=== PATIENT | female | born 1930 | race Caucasian/White ===

== ENCOUNTER 2017-07-02 11:02 | Emergency (ER) | payer MEDICARE, OTHER ==
[2017-07-02] MEDS ORDERED: Aspirin 81 MG Tab.Chew PO ONE (11:17)
[2017-07-02] MEDS ORDERED: Sodium Chloride 0.9% 10 ML Syringe FLUSH PRN (11:17)
[2017-07-02] MEDS ORDERED: GI Cocktail Oral Solution 30 ML PO ONE (11:17)
[2017-07-02] MEDS ORDERED: Aspirin 81 MG Tab.EC PO ONE (12:04)
[2017-07-02 12:22] LABS: CHLORIDE,CL 101 mmol/L (98-107); SODIUM,NA 137 mmol/L (136-145)
--- NOTE | 2017-07-02 12:51 | EDM.PDOC ---
ED HPI GENERAL MEDICAL PROBLEM - General Chief Complaint: Cardiovascular Problem Stated Complaint: VOMITING Time Seen by Provider: 07/02/17 11:16 Source of Information: Reports: Patient History Limitations: Reports: No Limitations - History of Present Illness INITIAL COMMENTS - FREE TEXT/NARRATIVE: Patient reports having some chest pain this morning at 0900. This then resulted in nausea and vomiting. She did take a nitro at home as well as 2 baby aspirin. She developed the pain while sitting. It does not worsen with activity. She does have a history of PR. No smoking, alcohol, or drug use. She denies diaphoresis, abdominal pain, fever, headache. No arm, neck or jaw pain. She denies current pain. Onset: Today, Sudden Location: Reports: Chest, Abdomen Quality: Reports: Pressure, Sharp Severity: Mild Worsens with: Reports: None Associated Symptoms: Reports: Chest Pain, Nausea/Vomiting Mid-Sternal Chest Pain Score (Numeric/FACES): 2 - Related Data Allergies Allergy/AdvReac Type Severity Reaction Status Date / Time latex Allergy Cannot Verified 07/02/17 12:33 Remember levofloxacin [From Levaquin] Allergy Cannot Verified 07/02/17 12:33 Remember lisinopril Allergy Wheezing Verified 07/02/17 12:33 pravastatin Allergy Cannot Verified 07/02/17 12:33 Remember sulfamethoxazole Allergy Cannot Verified 07/02/17 12:33 [From Septra] Remember trimethoprim [From Septra] Allergy Cannot Verified 07/02/17 12:33 Remember acetaminophen AdvReac Nausea and Verified 07/02/17 12:33 [From Lorcet 10/650] Vomiting hydrocodone bitartrate AdvReac Nausea and Verified 07/02/17 12:33 [From Lorcet 10/650] Vomiting nitrofurantoin AdvReac Nausea and Verified 07/02/17 12:33 macrocrystalline Vomiting [From Macrobid] tramadol [From Ultram] AdvReac Nausea and Verified 07/02/17 12:33 Vomiting Home Meds: Home Meds Nitroglycerin [Nitrostat] 1 tab SL TID PRN 04/28/13 [History] Vitamin E 400 unit PO DAILY 04/28/13 [History] Nystatin/Triamcinolone Crm [Mycolog Crm] 1 gm TOP BID PRN 04/27/14 [History] diphenhydrAMINE [Benadryl] 25 mg PO DAILY PRN 04/27/14 [History] Aspirin [Halfprin] 81 mg PO DAILY 08/07/14 [History] Calcium Carbonate/Vitamin D3 [Calcium 500-Vit D3 200 Caplet] 1 tab PO DAILY [History] Omeprazole 20 mg PO BID #60 cap.cr 10/20/15 [Rx] Ferrous Sulfate 325 mg PO DAILY 12/31/15 [History] riTUXimab [Rituxan] 1,000 mg IV Q6M 12/31/15 [History] Magnesium Oxide 400 mg PO BID #60 tablet 01/03/16 [Rx] glipiZIDE [Glucotrol XL] 5 mg PO DAILY 03/13/16 [History] Allopurinol [Zyloprim] 100 mg PO DAILY 04/03/16 [History] OXcarbazepine [Trileptal] 300 mg PO BID 04/04/16 [History] Acetaminophen [Tylenol Extra Strength] 1,000 mg PO Q4H PRN 07/02/17 [History] Carvedilol [Coreg] 12.5 mg PO BID 07/02/17 [History] Cranberry 400 mg PO DAILY PRN 07/02/17 [History] Furosemide [Lasix] 20 mg PO DAILY 07/02/17 [History] Past Medical History HEENT History: Reports: Cataract, Hard of Hearing Cardiovascular History: Reports: CAD, Heart Failure, High Cholesterol, Hypertension, PR, SOB on Exertion, Other (See Below) Other Cardiovascular History: mitral regurgitation Respiratory History: Reports: SOB, Other (See Below) Other Respiratory History: nocturnal hypoxemia Gastrointestinal History: Reports: Colon Polyp, Diverticulosis Genitourinary History: Reports: Diabetic Nephropathy, Renal Disease [employer]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 rhabdomyolysis Neurological History: Reports: Other (See Below) Other Neuro History: not applicable Psychiatric History: Reports: Depression Endocrine/Metabolic History: Reports: Diabetes, Type II, Osteopenia, Vitamin D Deficiency Hematologic History: Reports: Anemia Dermatologic History: Reports: Other (See Below) Other Dermatologic History: intertrigo - Past Surgical History HEENT Surgical History: Reports: Cataract Surgery, Eye Surgery Cardiovascular Surgical History: Reports: Percutaneous Transluminal Angioplasty Musculoskeletal Surgical History: Reports: Carpal Tunnel, Shoulder Surgery, Other (See Below) Social & Family History - Family History Family Medical History: Noncontributory - Tobacco Use Smoking Status *Q: Never Smoker Second Hand Smoke Exposure: No - Alcohol Use Days Per Week of Alcohol Use: 0 - Recreational Drug Use Recreational Drug Use: No ED ROS GENERAL - Review of Systems Review Of Systems: See Below Constitutional: Reports: No Symptoms HEENT: Reports: No Symptoms Respiratory: Reports: No Symptoms Cardiovascular: Reports: Chest Pain Endocrine: Reports: No Symptoms GI/Abdominal: Reports: Abdominal Pain, Nausea, Vomiting : Reports: No Symptoms Musculoskeletal: Reports: No Symptoms Skin: Reports: No Symptoms Neurological: Reports: No Symptoms Psychiatric: Reports: No Symptoms Hematologic/Lymphatic: Reports: No Symptoms Immunologic: Reports: No Symptoms ED EXAM, GENERAL - Physical Exam Exam: See Below Exam Limited By: No Limitations General Appearance: Alert, WD/WN, No Apparent Distress Eye Exam: Bilateral Eye: EOMI, PERRL Ears: Normal TMs Nose: Normal Inspection, Normal Mucosa, No Blood Throat/Mouth: Normal Inspection, Normal Lips, Normal Teeth, Normal Gums, Normal Oropharynx, Normal Voice, No Airway Compromise Head: Atraumatic, Normocephalic Neck: Normal Inspection, Supple, Non-Tender, Full Range of Motion Respiratory/Chest: No Respiratory Distress, Lungs Clear, Normal Breath Sounds, No Accessory Muscle Use, Chest Non-Tender Cardiovascular: Normal Peripheral Pulses, Regular Rate, Rhythm, No Edema, No Gallop, No JVD, No Murmur, No Rub Peripheral Pulses: 2+: Posterior Tibial (L), Posterior Tibial (R), Dorsalis Pedis (L), Dorsalis Pedis (R) GI/Abdominal: Normal Bowel Sounds, Soft, Non-Tender, No Organomegaly, No Distention, No Abnormal Bruit, No Mass Back Exam: Normal Inspection, Full Range of Motion, NT Extremities: Normal Inspection, Normal Range of Motion, Non-Tender, Normal Capillary Refill, No Pedal Edema Neurological: Alert, Oriented, CN II-XII Intact, Normal Cognition, Normal Gait, Normal Reflexes, No Motor/Sensory Deficits Psychiatric: Normal Affect, Normal Mood Skin Exam: Warm, Dry, Intact, Normal Color, No Rash Lymphatic: No Adenopathy EKG INTERPRETATION EKG Date: 07/02/17 Time: 11:09 Rhythm: NSR Rate (Beats/Min): 77 [place]: Normal P-Wave: Present QRS: LBBB ST-T: Normal QT: Normal Comparison: No Change Course - Vital Signs Last Recorded V/S: Last Vital Signs Temp 36.2 C 07/02/17 11:10 Pulse 77 07/02/17 11:10 Resp 16 07/02/17 11:10 BP 134/59 L 07/02/17 11:10 Pulse Ox 95 07/02/17 11:10 - Orders/Labs/Meds Orders: Active Orders 24 hr Category Date Time Status EKG Documentation Completion [RC] ROUTINE Care 07/02/17 11:17 Ordered Chest 1V Frontal [CR] Stat Exams 07/02/17 11:17 Ordered Sodium Chloride 0.9% [Saline Flush] Med 07/02/17 11:17 Ordered 10 ml FLUSH ASDIRECTED PRN Saline Lock Insert [OM.PC] Routine Oth 07/02/17 11:17 Ordered Medication Orders Sodium Chloride (Saline Flush) 10 ml FLUSH ASDIRECTED PRN PRN Reason: Keep Vein Open Labs: Laboratory Tests 07/02/17 07/02/17 07/02/17 Range/Units 11:40 11:40 11:40 WBC 8.3 (4.0-10.0) x10^3/uL RBC 3.35 L (4.00-5.50) x10^6/uL Hgb 10.4 L (12.0-16.0) g/dL Hct 33.0 (33.0-47.0) % MCV 98.5 H D (78.0-93.0) fL MCH 31.0 (26.0-32.0) pg MCHC 31.5 L (32.0-36.0) g/dL RDW Coeff of Beryl 13.8 (10.0-15.0) % Plt Count 195 (130-400) x10^3/uL Neut % (Auto) 75.8 (50.0-80.0) % Lymph % (Auto) 13.4 L (25.0-50.0) % [place] % (Auto) 6.9 (2.0-11.0) % Eos % (Auto) 3.4 (0.0-4.0) % Baso % (Auto) 0.5 (0.2-1.2) % PT 9.8 (9.8-11.8) SEC INR 0.9 L (2.0-3.5) Sodium 137 (136-145) mmol/L Potassium 5.0 (3.5-5.1) mmol/L Chloride 101 D (98-107) mmol/L Carbon Dioxide 26 (21-32) mmol/L BUN 33 H (7-18) mg/dL Creatinine 1.4 H (0.55-1.02) mg/dL Est Cr Clr Drug Dosing TNP Estimated GFR (MDRD) 36 Glucose 281 H (74-106) mg/dL Calcium 9.2 (8.5-10.1) mg/dL Corrected Calcium 9.60 (8.5-10.1) mg/dL Total Bilirubin 0.7 (0.2-1.0) mg/dL AST 63 H (15-37) U/L ALT 38 (14-59) U/L Alkaline Phosphatase 126 H (46-116) U/L POC Troponin I (0.00-0.08) ng/mL NT-Pro-B Natriuret Pep 448 (<=450) pg/mL Total Protein 7.2 (6.4-8.2) g/dL Albumin 3.5 (3.4-5.0) g/dL Globulin 3.7 Albumin/Globulin Ratio 0.95 TSH, Ultra Sensitive (0.358-3.74) uIU/mL 07/02/17 07/02/17 Range/Units 11:40 11:55 WBC (4.0-10.0) x10^3/uL RBC (4.00-5.50) x10^6/uL Hgb (12.0-16.0) g/dL Hct (33.0-47.0) % MCV (78.0-93.0) fL MCH (26.0-32.0) pg MCHC (32.0-36.0) g/dL RDW Coeff of Beryl (10.0-15.0) % Plt Count (130-400) x10^3/uL Neut % (Auto) (50.0-80.0) % Lymph % (Auto) (25.0-50.0) % [place] % (Auto) (2.0-11.0) % Eos % (Auto) (0.0-4.0) % Baso % (Auto) (0.2-1.2) % PT (9.8-11.8) SEC INR (2.0-3.5) Sodium (136-145) mmol/L Potassium (3.5-5.1) mmol/L Chloride (98-107) mmol/L Carbon Dioxide (21-32) mmol/L BUN (7-18) mg/dL Creatinine (0.55-1.02) mg/dL Est Cr Clr Drug Dosing Estimated GFR (MDRD) Glucose (74-106) mg/dL Calcium (8.5-10.1) mg/dL Corrected Calcium (8.5-10.1) mg/dL Total Bilirubin (0.2-1.0) mg/dL AST (15-37) U/L ALT (14-59) U/L Alkaline Phosphatase (46-116) U/L POC Troponin I 0.00 (0.00-0.08) ng/mL NT-Pro-B Natriuret Pep (<=450) pg/mL Total Protein (6.4-8.2) g/dL Albumin (3.4-5.0) g/dL Globulin Albumin/Globulin Ratio TSH, Ultra Sensitive 6.139 H (0.358-3.74) uIU/mL Meds: Medications Generic Name Dose Route Start Last Admin Trade Name Freq PRN Reason Stop Dose Admin Sodium Chloride 10 ml 07/02/17 11:17 Saline Flush FLUSH ASDIRECTED PRN Keep Vein Open Discontinued Medications Generic Name Dose Route Start Last Admin Trade Name Freq PRN Reason Stop Dose Admin Al Hydroxide/Mg Hydroxide 30 ml 07/02/17 11:17 07/02/17 12:05 Gi Cocktail PO 07/02/17 11:18 30 ml ONETIME ONE Administration Aspirin 324 mg 07/02/17 11:17 07/02/17 12:05 Aspirin PO 07/02/17 11:18 243 mg ONETIME ONE Administration Aspirin 243 mg 07/02/17 12:04 07/02/17 12:10 Halfprin PO 07/02/17 12:05 Not Given ONETIME ONE Departure - Departure Time of Disposition: 13:00 Disposition: Home, Self-Care 01 Condition: Good Clinical Impression: Chest pain Instructions: Costochondritis, [id number], Nonspecific Chest Pain, Easy-to- Read Referrals: Stephanie Briones MD [Primary Care Provider] - Forms: ED Department Discharge Additional Instructions: Follow up with your primary doctor as needed for additional symptom management. There was a recommendation on your chest x-ray to have a CT scan. I will let your primary follow up with this for you. Make sure you stay well hydrated. If you experience additional chest pain, certainly return for further evaluation. Your labs and diagnostic tests were negative for an acute heart attack. Please call with any questions or concerns. - Problem List & Annotations (1) Chest pain SNOMED Code(s): 62925509 Code(s): R07.9 - CHEST PAIN, UNSPECIFIED Status: Acute Priority: Low Current Visit: Yes Qualifiers: Chest pain type: other chest pain Qualified Code(s): R07.89 - Other chest pain; R07.8 - Other chest pain - Problem List Review Problem List Initiated/Reviewed/Updated: Yes - My Orders Last 24 Hours: My Active Orders 07/02/17 11:17 EKG Documentation Completion [RC] ROUTINE Chest 1V Frontal [CR] Stat Sodium Chloride 0.9% [Saline Flush] 10 ml FLUSH ASDIRECTED PRN Saline Lock Insert [OM.PC] Routine - Assessment/Plan Last 24 Hours: My Active Orders 07/02/17 11:17 EKG Documentation Completion [RC] ROUTINE Chest 1V Frontal [CR] Stat Sodium Chloride 0.9% [Saline Flush] 10 ml FLUSH ASDIRECTED PRN Saline Lock Insert [OM.PC] Routine Assessment:: chest pain Plan: Follow up with your primary doctor as needed for additional symptom management. There was a recommendation on your chest x-ray to have a CT scan. I will let your primary follow up with this for you. Make sure you stay well hydrated. If you experience additional chest pain, certainly return for further evaluation. Your labs and diagnostic tests were negative for an acute heart attack. Please call with any questions or concerns.
[2017-07-02 14:18] VITALS: BP 124/60
== END 2017-07-02 13:00 | disposition home or self-care (01) ==
LOC: VM.ED 11:02
DX: R07.9 Chest pain, unspecified (principal); I11.0 Hypertensive heart disease with heart failure; I50.9 Heart failure, unspecified; E78.00 Pure hypercholesterolemia, unspecified; E11.40 Type 2 diabetes mellitus with diabetic neuropathy, unspecified; Z91.040 Latex allergy status; Z88.1 Allergy status to other antibiotic agents; Z88.8 Allergy status to other drugs, medicaments and biological substances; Z88.2 Allergy status to sulfonamides; Z88.5 Allergy status to narcotic agent; Z79.82 Long term (current) use of aspirin; Z79.899 Other long term (current) drug therapy
CPT/HCPCS: 36415; 71045; 80053; 83880; 84443; 84484; 85025; 85610; 93005; 93010; 99284-GF; 99285; A9270-GY

== ENCOUNTER 2017-07-09 18:14 | Emergency (ER) | payer MEDICARE, OTHER ==
[2017-07-09] MEDS ORDERED: Sodium Chloride 0.9% 10 ML Syringe FLUSH PRN (18:23)
[2017-07-09] MEDS: Sodium Chloride 0.9% 1,000 ML IV ONE (18:45)
[2017-07-09] MEDS: Ondansetron 4 MG/2 ML SDV IVPUSH ONE (18:46)
[2017-07-09] MEDS: Morphine 4 MG/ML Syringe IVPUSH ONE (18:49)
[2017-07-09 19:41] LABS: CHLORIDE,CL 99 mmol/L (98-107); SODIUM,NA 136 mmol/L (136-145)
--- NOTE | 2017-07-09 20:31 | EDM.PDOC ---
ED HPI GENERAL MEDICAL PROBLEM - General Chief Complaint: General Stated Complaint: chest wall pain, N/V, ap Time Seen by Provider: 07/09/17 18:33 Source of Information: Reports: Patient History Limitations: Reports: No Limitations - History of Present Illness INITIAL COMMENTS - FREE TEXT/NARRATIVE: Pt. presents to ER with complaints of respirophasic anterior chest pain. Pt. states that she has been experiencing this discomfort for several days. Pt. states that she was seen by Devin Lindsay in the ER this past weekend with chest discomfort and diagnosed with chest wall pain. She states that the discomfort is getting worse. Denies any fever of chills. Denies any cough. Complains of mild dyspnea. Denies nausea, vomiting, or diarrhea. She denies arm or back pain. No diaphoresis. Onset: Today Duration: Getting Worse Location: Reports: Chest, Abdomen Quality: Reports: Ache, Throbbing Severity: Severe Worsens with: Reports: Movement Associated Symptoms: Reports: Chest Pain, Nausea/Vomiting epigastric Pain Score (Numeric/FACES): 4 - Related Data Allergies Allergy/AdvReac Type Severity Reaction Status Date / Time latex Allergy Cannot Verified 07/02/17 12:33 Remember levofloxacin [From Levaquin] Allergy Cannot Verified 07/02/17 12:33 Remember lisinopril Allergy Wheezing Verified 07/02/17 12:33 pravastatin Allergy Cannot Verified 07/02/17 12:33 Remember sulfamethoxazole Allergy Cannot Verified 07/02/17 12:33 [From Septra] Remember trimethoprim [From Septra] Allergy Cannot Verified 07/02/17 12:33 Remember acetaminophen AdvReac Nausea and Verified 07/02/17 12:33 [From Lorcet 10/650] Vomiting hydrocodone bitartrate AdvReac Nausea and Verified 07/02/17 12:33 [From Lorcet 10/650] Vomiting nitrofurantoin AdvReac Nausea and Verified 07/02/17 12:33 macrocrystalline Vomiting [From Macrobid] tramadol [From Ultram] AdvReac Nausea and Verified 07/02/17 12:33 Vomiting Home Meds: Home Meds Nitroglycerin [Nitrostat] 1 tab SL TID PRN 04/28/13 [History] Vitamin E 400 unit PO DAILY 04/28/13 [History] Nystatin/Triamcinolone Crm [Mycolog Crm] 1 gm TOP BID PRN 04/27/14 [History] diphenhydrAMINE [Benadryl] 25 mg PO DAILY PRN 04/27/14 [History] Aspirin [Halfprin] 81 mg PO DAILY 08/07/14 [History] Calcium Carbonate/Vitamin D3 [Calcium 500-Vit D3 200 Caplet] 1 tab PO DAILY [History] Omeprazole 20 mg PO BID #60 cap.cr 10/20/15 [Rx] Ferrous Sulfate 325 mg PO DAILY 12/31/15 [History] riTUXimab [Rituxan] 1,000 mg IV Q6M 12/31/15 [History] Magnesium Oxide 400 mg PO BID #60 tablet 01/03/16 [Rx] glipiZIDE [Glucotrol XL] 10 mg PO DAILY 03/13/16 [History] Allopurinol [Zyloprim] 100 mg PO DAILY 04/03/16 [History] OXcarbazepine [Trileptal] 150 mg PO BID 04/04/16 [History] Acetaminophen [Tylenol Extra Strength] 1,000 mg PO Q4H PRN 07/02/17 [History] Carvedilol [Coreg] 12.5 mg PO BID 07/02/17 [History] Cranberry 400 mg PO DAILY PRN 07/02/17 [History] Furosemide [Lasix] 20 mg PO DAILY 07/02/17 [History] Past Medical History HEENT History: Reports: Cataract, Hard of Hearing Cardiovascular History: Reports: CAD, Heart Failure, High Cholesterol, Hypertension, [place], SOB on Exertion, Other (See Below) Other Cardiovascular History: mitral regurgitation Respiratory History: Reports: SOB, Other (See Below) Other Respiratory History: nocturnal hypoxemia Gastrointestinal History: Reports: Colon Polyp, Diverticulosis Genitourinary History: Reports: Diabetic Nephropathy, Renal Disease [employer]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 rhabdomyolysis Neurological History: Reports: Other (See Below) Other Neuro History: not applicable Psychiatric History: Reports: Depression Endocrine/Metabolic History: Reports: Diabetes, Type II, Osteopenia, Vitamin D Deficiency Hematologic History: Reports: Anemia Dermatologic History: Reports: Other (See Below) Other Dermatologic History: intertrigo - Past Surgical History HEENT Surgical History: Reports: Cataract Surgery, Eye Surgery Cardiovascular Surgical History: Reports: Percutaneous Transluminal Angioplasty Musculoskeletal Surgical History: Reports: Carpal Tunnel, Shoulder Surgery, Other (See Below) Social & Family History - Family History Family Medical History: Noncontributory - Tobacco Use Smoking Status *Q: Never Smoker Second Hand Smoke Exposure: No - Alcohol Use Days Per Week of Alcohol Use: 0 - Recreational Drug Use Recreational Drug Use: No ED ROS GENERAL - Review of Systems Review Of Systems: See Below Constitutional: Reports: No Symptoms HEENT: Reports: No Symptoms Respiratory: Reports: No Symptoms, Other (respirophasic epigastric pain) Cardiovascular: Reports: No Symptoms Endocrine: Reports: No Symptoms GI/Abdominal: Reports: No Symptoms : Reports: No Symptoms Musculoskeletal: Reports: No Symptoms Skin: Reports: No Symptoms Neurological: Reports: No Symptoms Psychiatric: Reports: No Symptoms ED EXAM, GENERAL - Physical Exam Exam: See Below Exam Limited By: No Limitations General Appearance: Alert, WD/WN, No Apparent Distress Eye Exam: Bilateral Eye: EOMI, Normal Fundi, Normal Inspection, PERRL Ears: Normal External Exam, Normal Canal, Hearing Grossly Normal, Normal TMs Ear Exam: Bilateral Ear: Auricle Normal, Canal Normal, TM normal Nose: Normal Inspection, Normal Mucosa, No Blood Throat/Mouth: Normal Inspection, Normal Lips, Normal Teeth, Normal Gums, Normal Oropharynx, Normal Voice, No Airway Compromise Head: Atraumatic, Normocephalic Neck: Normal Inspection, Supple, Non-Tender, Full Range of Motion Respiratory/Chest: No Respiratory Distress, Normal Breath Sounds, No Accessory Muscle Use, Decreased Breath Sounds Cardiovascular: Normal Peripheral Pulses, Regular Rate, Rhythm, No Edema, No Gallop, No JVD, No Murmur, No Rub Peripheral Pulses: 3+: Radial (L), Radial (R) GI/Abdominal: Normal Bowel Sounds, Soft, Non-Tender, No Organomegaly, No Distention, No Abnormal Bruit, No Mass (Female) Exam: Deferred Rectal (Female) Exam: Deferred Back Exam: Normal Inspection, Full Range of Motion, NT Extremities: Normal Inspection, Normal Range of Motion, Non-Tender, Normal Capillary Refill, No Pedal Edema Neurological: Alert, Oriented, CN II-XII Intact, Normal Cognition, Normal Gait, Normal Reflexes, No Motor/Sensory Deficits Skin Exam: Warm, Dry, Intact, Normal Color, No Rash Course - Vital Signs Last Recorded V/S: Last Vital Signs Temp 36.6 C 07/09/17 18:33 Pulse 71 07/09/17 21:10 Resp 14 07/09/17 19:02 BP 106/54 L 07/09/17 21:10 Pulse Ox 90 L 07/09/17 19:02 - Orders/Labs/Meds Orders: Active Orders 24 hr Category Date Time Status EKG Documentation Completion [RC] STAT Care 07/09/17 18:24 Active Chest 1V Frontal [CR] Stat Exams 07/09/17 18:36 Taken PE Chest [Ang Chest] [CT] Stat Exams 07/09/17 19:53 Taken AMYLASE [CHEM] Stat Lab 07/09/17 19:00 Received CULTURE BLOOD [BC] Stat Lab 07/09/17 19:00 Received CULTURE BLOOD [BC] Stat Lab 07/09/17 19:08 Received LIPASE [CHEM] Stat Lab 07/09/17 19:00 Received Sodium Chloride 0.9% [Saline Flush] Med 07/09/17 18:23 Active 10 ml FLUSH ASDIRECTED PRN Blood Culture x2 Reflex Set [OM.PC] Stat Oth 07/09/17 18:28 Ordered Peripheral IV Insertion Adult [OM.PC] Routine Oth 07/09/17 18:24 Ordered Medication Orders Sodium Chloride (Saline Flush) 10 ml FLUSH ASDIRECTED PRN PRN Reason: Keep Vein Open Labs: Laboratory Tests 07/09/17 07/09/17 07/09/17 Range/Units 19:00 19:00 19:00 WBC 15.1 H (4.0-10.0) x10^3/uL RBC 3.43 L (4.00-5.50) x10^6/uL Hgb 10.7 L (12.0-16.0) g/dL Hct 33.5 (33.0-47.0) % MCV 97.7 H (78.0-93.0) fL MCH 31.2 (26.0-32.0) pg MCHC 31.9 L (32.0-36.0) g/dL RDW Coeff of Beryl 13.6 (10.0-15.0) % Plt Count 202 (130-400) x10^3/uL Neut % (Auto) 91.4 H (50.0-80.0) % Lymph % (Auto) 2.9 L (25.0-50.0) % [place] % (Auto) 5.5 (2.0-11.0) % Eos % (Auto) 0.1 (0.0-4.0) % Baso % (Auto) 0.1 L (0.2-1.2) % PT 10.1 (9.8-11.8) SEC INR 0.9 L (2.0-3.5) D-Dimer, Quantitative (<=0.58) mg/LFEU Sodium 136 (136-145) mmol/L Potassium 4.5 (3.5-5.1) mmol/L Chloride 99 (98-107) mmol/L Carbon Dioxide 27 (21-32) mmol/L BUN 24 H (7-18) mg/dL Creatinine 1.4 H (0.55-1.02) mg/dL Est Cr Clr Drug Dosing 27.50 mL/min Estimated GFR (MDRD) 36 Glucose 209 H (74-106) mg/dL Lactic Acid (0.4-2.0) mmol/L Calcium 9.4 (8.5-10.1) mg/dL Corrected Calcium 9.80 (8.5-10.1) mg/dL Total Bilirubin 2.1 H (0.2-1.0) mg/dL AST 284 H (15-37) U/L ALT 208 H (14-59) U/L Alkaline Phosphatase 353 H (46-116) U/L Troponin I < 0.017 (<=0.056) ng/mL C-Reactive Protein 3.8 H (<=0.9) mg/dL Total Protein 7.4 (6.4-8.2) g/dL Albumin 3.5 (3.4-5.0) g/dL Globulin 3.9 Albumin/Globulin Ratio 0.90 07/09/17 07/09/17 Range/Units 19:00 19:00 WBC (4.0-10.0) x10^3/uL RBC (4.00-5.50) x10^6/uL Hgb (12.0-16.0) g/dL Hct (33.0-47.0) % MCV (78.0-93.0) fL MCH (26.0-32.0) pg MCHC (32.0-36.0) g/dL RDW Coeff of Beryl (10.0-15.0) % Plt Count (130-400) x10^3/uL Neut % (Auto) (50.0-80.0) % Lymph % (Auto) (25.0-50.0) % [place] % (Auto) (2.0-11.0) % Eos % (Auto) (0.0-4.0) % Baso % (Auto) (0.2-1.2) % PT (9.8-11.8) SEC INR (2.0-3.5) D-Dimer, Quantitative 3.02 H (<=0.58) mg/LFEU Sodium (136-145) mmol/L Potassium (3.5-5.1) mmol/L Chloride (98-107) mmol/L Carbon Dioxide (21-32) mmol/L BUN (7-18) mg/dL Creatinine (0.55-1.02) mg/dL Est Cr Clr Drug Dosing mL/min Estimated GFR (MDRD) Glucose (74-106) mg/dL Lactic Acid 1.3 (0.4-2.0) mmol/L Calcium (8.5-10.1) mg/dL Corrected Calcium (8.5-10.1) mg/dL Total Bilirubin (0.2-1.0) mg/dL AST (15-37) U/L ALT (14-59) U/L Alkaline Phosphatase (46-116) U/L Troponin I (<=0.056) ng/mL C-Reactive Protein (<=0.9) mg/dL Total Protein (6.4-8.2) g/dL Albumin (3.4-5.0) g/dL Globulin Albumin/Globulin Ratio Meds: Medications Generic Name Dose Route Start Last Admin Trade Name Freq PRN Reason Stop Dose Admin Sodium Chloride 10 ml 07/09/17 18:23 Saline Flush FLUSH ASDIRECTED PRN Keep Vein Open Discontinued Medications Generic Name Dose Route Start Last Admin Trade Name Freq PRN Reason Stop Dose Admin Sodium Chloride 1,000 mls @ 500 mls/hr 07/09/17 18:32 07/09/17 18:45 Normal Saline IV 07/09/17 20:31 500 mls/hr .BOLUS ONE Administration Piperacillin Sod/Tazobactam 100 mls @ 200 mls/hr 07/09/17 20:42 07/09/17 20: 56 Sod 4.5 gm/ Sodium Chloride IV 07/09/17 21:11 200 mls/hr ONETIME ONE Administration Morphine Sulfate 4 mg 07/09/17 18:32 07/09/17 18:49 Morphine IVPUSH 07/09/17 18:33 4 mg ONETIME ONE Administration Ondansetron HCl 4 mg 07/09/17 18:32 07/09/17 18:46 Zofran IVPUSH 07/09/17 18:33 4 mg ONETIME ONE Administration Departure - Departure Time of Disposition: 20:37 Disposition: DC/Tfer to [facility] 02 Clinical Impression: Acute cholangitis - Discharge Information Referrals: Stephanie Briones MD [Primary Care Provider] - Forms: ED Department Discharge, Interfacility Transfer EMTALA - My Orders Last 24 Hours: My Active Orders 07/09/17 18:23 Sodium Chloride 0.9% [Saline Flush] 10 ml FLUSH ASDIRECTED PRN 07/09/17 18:24 EKG Documentation Completion [RC] STAT Peripheral IV Insertion Adult [OM.PC] Routine 07/09/17 18:28 Blood Culture x2 Reflex Set [OM.PC] Stat 07/09/17 18:36 Chest 1V Frontal [CR] Stat 07/09/17 19:00 AMYLASE [CHEM] Stat CULTURE BLOOD [BC] Stat LIPASE [CHEM] Stat 07/09/17 19:08 CULTURE BLOOD [BC] Stat 07/09/17 19:53 PE Chest [Ang Chest] [CT] Stat - Assessment/Plan Last 24 Hours: My Active Orders 07/09/17 18:23 Sodium Chloride 0.9% [Saline Flush] 10 ml FLUSH ASDIRECTED PRN 07/09/17 18:24 EKG Documentation Completion [RC] STAT Peripheral IV Insertion Adult [OM.PC] Routine 07/09/17 18:28 Blood Culture x2 Reflex Set [OM.PC] Stat 07/09/17 18:36 Chest 1V Frontal [CR] Stat 07/09/17 19:00 AMYLASE [CHEM] Stat CULTURE BLOOD [BC] Stat LIPASE [CHEM] Stat 07/09/17 19:08 CULTURE BLOOD [BC] Stat 07/09/17 19:53 PE Chest [Ang Chest] [CT] Stat
[2017-07-09] MEDS: Piperacillin/Tazobactam 4.5 GM in Sodium Chloride 0.9% 100 ML IV ONE (20:56)
[2017-07-09 21:10] VITALS: BP 106/54
== END 2017-07-09 22:20 | disposition short-term general hospital (02) ==
LOC: VM.ED 18:14
DX: K83.0 Cholangitis (principal); I11.0 Hypertensive heart disease with heart failure; I50.9 Heart failure, unspecified; I25.2 Old myocardial infarction; E78.00 Pure hypercholesterolemia, unspecified; E11.21 Type 2 diabetes mellitus with diabetic nephropathy; Z91.040 Latex allergy status; Z88.8 Allergy status to other drugs, medicaments and biological substances; Z88.2 Allergy status to sulfonamides; Z88.6 Allergy status to analgesic agent; Z79.899 Other long term (current) drug therapy; Z79.82 Long term (current) use of aspirin
CPT/HCPCS: 36415; 71045; 71275; 80053; 81001; 82150; 83605; 83690; 84484; 85025; 85379; 85610; 86140; 87040; 93005; 96361; 96365; 96375; 99285; J2270; J2405; J2543; J7030; J7050